=== PATIENT | female | born 1985 | race Hispanic/Latino ===

== ENCOUNTER 2018-03-19 03:19 | Inpatient (IN) | payer OTHER ==
[2018-03-19] VITALS (9 sets, daily range): BP systolic 108–134; BP diastolic 57–75
[~2018-03-19] VITALS: Ht 154.9 cm; Wt 66.0 kg
[2018-03-19] MEDS ORDERED: VITA100C7 PO (03:29)
[2018-03-19] MEDS ORDERED: VITA100T59 PO (03:29)
[2018-03-19] MEDS ORDERED: IRON27TA2 PO (03:29)
[2018-03-19] MEDS ORDERED: PREN1TAB26 PO (03:29)
[2018-03-19] MEDS ORDERED: OXYTOCIN 30 UNITS IN 0.9% NaCl 500ML IV BAG (J2590) As Ordered ONE (03:44)
[2018-03-19 04:06] LABS: HEMATOCRIT 34.9 % (36.0-47.0); HEMOGLOBIN 11.8 g/dl (12.0-15.5); MEAN CORPUSCULAR HEMOGLOBIN 33.5 pg (27.0-33.0); MEAN CORPUSCULAR HGB CONC 33.8 g/dl (32.0-36.5); MEAN CORPUSCULAR VOLUME 99.1 fl (80.0-96.0); PLATELET COUNT, AUTOMATED 133 10^3/uL (150-450); RED BLOOD COUNT 3.52 10^6/uL (4.00-5.40); WHITE BLOOD COUNT 8.5 10^3/uL (4.0-10.0)
[2018-03-19] MEDS ORDERED: LR 1,000 ML IV SCH (04:23)
--- NOTE | 2018-03-19 04:29 | HPEPDOC ---
Obstetrical History & Physical General Date of Admission Mar 19, 2018 at 03:43 History of Present Illness 31 y/o at 3+5 with reg ctx's last 3-4 hours. Pos FM. No LOF/VB. Preg uncomplicated. Chief Complaint: Contractions, term Information Provided By: Patient Care Care: Good Care Dating Final EDC by: LMP, 1st trimester (US) Past Medical History Past Obstetrical History : Type of Delivery: Spontaneous Vaginal Del. (2010 6 lb 6 oz male, uncomp licated) Sex of : Female [employer] History: No pertinent history Past Medical History Medical History denies Surgical History: Appendectomy, Breast augmentation, Tracy teeth, Other (lasiz, ankle x1) Family History Significant Family History: No pertinent family hx Social History Marital Status: Family situation: Spouse/partner home Psychosocial History: No pertinent psych hx * Smoker: non-smoker Alcohol: Denies Drugs: denies Abuse Violence Screening Have you been hit/kicked/slapp: No Have you been sexually assault: No Imunizations Tdap status: current Influenza Status: current Allergies Coded Allergies: No Known Allergies (Unverified , 03/19/18) Medications Scheduled ( Vitamin & Minera 28-0.8 mg) 1 Tab Tab, 1 TAB PO DAILY (Iron) 27 Mg Tab, 1 TAB PO DAILY Ascorbic Acid (Vitamin C) 100 Mg Tab, 1 TAB PO DAILY Miscellaneous Medications Ascorbic Acid (Vitamin C) 100 Mg Chw, 100 MG PO Physical Examination Physical Examination GENERAL: Alert and oriented times three. BREAST: . ABDOMEN: Gravid and non-tender to touch. FETUS: Is vertex (VTX) by sterile vaginal examination (SVE), C/C/+1, AROM with clear fluid, KEO EXTREMITIES: No edema. Laboratory Data 24H LABS Laboratory Tests 2 03/19/18 03:51: Serology Scanned Report Hepatitis B Testing 03/19/18 04:00: Nucleated Red Blood Cells % (auto) 0.0 CBC/BMP Laboratory Tests 03/19/18 04:00 Red Blood Count 3.52 L, Mean Corpuscular Volume 99.1 H, Mean Corpuscular He moglobin 33.5 H, Mean Corpuscular Hemoglobin Concent 33.8, Red Cell Distribution Width 14.3 Urine Culture: No Growth Pertinent Laboratoy Data Blood Type: A+ RBC Antibody Screen: Negative HIV: Negative Hepatitis B: Negative Hepatitis C: Unknown Rapid Plasma Reagin: Nonreactive Rubella: Immune Varicella: Immune Chlamydia/Gonorrhea: Negative Group B Streptococcus: Negative Quad Screen Test: Negative Cystic Fibrosis: Negative Glucose Tolerance Test: 165 (nl 3 hr GTT) Anatomy Ultrasound Placenta Location: Fundal Normal Anatomy: Yes (other than IMPLEMENTATION PROJECT COORDINATOR on first scan, gone with f/u scan) Placenta Previa: No Assessment Variability: Moderate Accelerations: Positive Decelerations: None Tocometer Frequency: regular Duration: greater than 60 seconds Strength: palpated as strong Assessment/Plan Assessment active labor Plan Admit and orient. Respite Provider and consent. Diet: clears Group B Streptococcus (GBS) neg Labs and intravenous (IV) per unit protocol. Counseled on Pitocin and induction of labor (IOL). Lactated Ringers (LR): 125 mL/hr. Anticipate normal spontaneous delivery () Sessions SESSIONS,ERIKA Collier MD Mar 19, 2018 04:29
[2018-03-19] MEDS ORDERED: OXYTOCIN DRIP 30 UNITS in APPROPRIATE DILUENT 1 EA IV SCH (05:09)
[2018-03-19] MEDS ORDERED: DIBUCAINE 1% OINTMENT 30GM TOP PRN (05:15)
[2018-03-19] MEDS ORDERED: MEASLES,MUMPS,RUBELLA VACCINE INJ (MMR-II) (90707) SC SCH (05:15)
[2018-03-19] MEDS ORDERED: RHOGAM 300 MCG (1500 IU) INJ (J2790) IM SCH (05:15)
[2018-03-19] MEDS ORDERED: LIDOCAINE 1% MDV 20ML VIAL INFIL ONE (05:15)
[2018-03-19] MEDS ORDERED: METOCLOPRAMIDE INJ 10MG/2ML VIAL (J2765) IV PRN (05:15)
[2018-03-19] MEDS ORDERED: ACETAMINOPHEN TAB 650MG DOSE (2X325MG) PO PRN (05:15)
[2018-03-19] MEDS ORDERED: LIDOCAINE 1% MDV 20ML VIAL As Ordered ONE (05:18)
--- NOTE | 2018-03-19 05:18 | DNPDOC ---
[facility] Delivery Note Delivery Note DATE OF DELIVERY: [id number] PREDELIVERY DIAGNOSIS: 38 5/7 weeks' gestation and labor. POST DELIVERY DIAGNOSIS: Delivered. PROCEDURE: Spontaneous vaginal delivery POOL MANAGER: Dr. Duncan ESTIMATED BLOOD LOSS: 300 mL. FINDINGS: 7 pound 13 ounce female , Score 8/9. DELIVERY SUMMARY: AROM with clr fluid, +1 station, started pushing, great effort. No signif delay of the vtx or ant/post shoulders. To abd in good shape. Cord C/C by FOB. Cord blood. Placenta intact, fundal massage and firm, pit going 999. 1st degr lac repaired with 3-0 vicryl. Good cosmesis/hemostasis. Uncomplicated . Sessions MD DUNCAN,ERIKA Collier MD Mar 19, 2018 05:18
[2018-03-19] MEDS: IBUPROFEN 800 MG TAB PO PRN ×2 (06:30→20:59)
[2018-03-19] MEDS: DOCUSATE SODIUM 100 MG CAP PO SCH ×2 (10:35→20:59)
[2018-03-19] MEDS: PRENATAL VITAMINS CHEWABLE TABLET PO SCH (10:35)
[2018-03-20 05:59] VITALS: BP 114/70
--- NOTE | 2018-03-20 08:16 | DS.PDOC ---
Discharge Summary General Date of Admission Mar 19, 2018 at 03:43 Date of Discharge [id number] Discharge Summary ADMITTING DIAGNOSES: active labor DISCHARGE DIAGNOSES: Same, HOSPITAL COURSE: Admitted and delivery uncomplicated, . course uncomplicated. DISCHARGE MEDICATIONS: Motrin, Lanolin, Dibucaine DISCHARGE INSTRUCTIONS: Nothing in the vagina for 6 weeks. F/U in OBGYN clinic in 6-8 weeks. Sessions Vital Signs/I&Os Vital Signs Date Time Temp Pulse Resp B/P (MAP) Pulse Ox O2 Delivery O2 Flow Rate FiO2 03/20/18 05:59 98.5 65 16 114/70 (85) 99 I&O- Last 24 Hours up to 6 AM 03/20/18 06:00 Intake Total 300 ml Output Total 300 ml Balance 0 ml Discharge Medications Scheduled ( Vitamin & Minera 28-0.8 mg) 1 Tab Tab, 1 TAB PO DAILY, (Reported) (Iron) 27 Mg Tab, 1 TAB PO DAILY, (Reported) Ascorbic Acid (Vitamin C) 100 Mg Tab, 1 TAB PO DAILY, (Reported) Miscellaneous Medications Ascorbic Acid (Vitamin C) 100 Mg Chw, 100 MG PO, (Reported) Allergies Coded Allergies: No Known Allergies (Unverified , 03/19/18) SESSIONS,ERIKA Collier MD Mar 20, 2018 08:16
--- NOTE | 2018-03-20 08:17 | IPNPDOC ---
Text Note Date of Service The patient was seen on 03/20/18. NOTE PPD1 States feeling well, pain controlled with prescribed meds. Baby bonding and feeding well. No heavy VB. Lochia slowing. Ambulating and voiding well. Tolerating PO without issues. VSSAF NAD A&O RRR CTAB LE no C/C/E Ut at U, firm a/p: Doing well. Cont routine care. D/C today. Sessions VS,Oneil, I+O VSOneil, I+O Vital Signs Date Time Temp Pulse Resp B/P (MAP) Pulse Ox O2 Delivery O2 Flow Rate FiO2 03/20/18 05:59 98.5 65 16 114/70 (85) 99 I&O- Last 24 Hours up to 6 AM 03/20/18 06:00 Intake Total 300 ml Output Total 300 ml Balance 0 ml SESSIONS,ERIKA Collier MD Mar 20, 2018 08:17
[2018-03-20] MEDS: PRENATAL VITAMINS CHEWABLE TABLET PO SCH (08:50)
[2018-03-20] MEDS: DOCUSATE SODIUM 100 MG CAP PO SCH (09:00)
[2018-03-20] MEDS ORDERED: MAPA500T2 PO (10:44)
[2018-03-20] MEDS ORDERED: IBUP-1114 PO (10:44)
[2018-03-20] MEDS ORDERED: COLA100C5 PO (10:44)
[2018-03-20] MEDS ORDERED: DIBU1OIN TOP (10:44)
== END 2018-03-20 12:15 | disposition home or self-care (01) | DRG 807 ==
LOC: M LDO 03:19 → M LDI 03:43 → M OBS 09:18
PROVIDERS: ADMIT Obstetrics & Gynecology; ATTEND Obstetrics & Gynecology
PROC: 10E0XZZ Delivery of Products of Conception, External Approach (ICD-10-PCS; principal; 2018-03-19)
PROC: 0HQ9XZZ Repair Perineum Skin, External Approach (ICD-10-PCS; 2018-03-19)
PROC: 10907ZC Drainage of Amniotic Fluid, Therapeutic from Products of Conception, Via Natural or Artificial Opening (ICD-10-PCS; 2018-03-19)
DX: O70.0 First degree perineal laceration during delivery (principal); Z37.0 Single live birth; Z3A.38 38 weeks gestation of pregnancy